=== PATIENT | male | born 1965 | race Caucasian/White ===

== ENCOUNTER 2017-05-30 12:50 | Inpatient (IN) | payer SELFPAY ==
[2017-05-30] VITALS (10 sets, daily range): BP systolic 118–171; BP diastolic 72–99; Ht 175.3 cm; Wt 68.6 kg
[~2017-05-30] VITALS: Ht 175.3 cm; Wt 68.6 kg
[2017-05-30 14:31] LABS: BASOPHILS 0.4 % (0-2); EOSINOPHILS 1.4 % (0-7); HEMATOCRIT 47.2 % (42.0-54.0); HEMOGLOBIN 16.6 g/dL (13.5-17.5); IMMATURE GRANULOCYTES 0.3 % (0-5); LYMPHOCYTES 21.9 % (15-50); MCH 32.6 pg (26.0-34.0); MCHC 35.2 g/dL (31.0-37.0); MCV 92.7 fL (80.0-100.0); MEAN PLATELET VOLUME 9.8 fL (7.4-10.4); MONOCYTES 14.6 % (2-11); NEUTROPHILS 61.4 % (40-80); PLATELET COUNT 228 10x3/uL (130-400); RBC 5.09 10x6/uL (4.20-6.10); RDW 12.7 % (11.5-14.5)
[2017-05-30 14:49] LABS: ALKALINE PHOSPHATASE 76 U/L (46-116); ALT (SGPT) 33 U/L (10-68); BILIRUBIN - TOTAL 0.65 mg/dL (0.2-1.3); CALC OSMOLALITY 268 mosm/kg (275-300); CALCIUM 9.1 mg/dL (8.5-10.1); CARBON DIOXIDE 28.3 mmol/L (21.0-32.0); CHLORIDE - SERUM 98 mmol/L (98-107); CREATININE - SERUM 0.8 mg/dL (0.6-1.3); GLUCOSE 108 mg/dL (74-106); POTASSIUM - SERUM 3.5 mmol/L (3.5-5.1); PROTEIN - SERUM 8.5 g/dL (6.4-8.2); SODIUM 135 mmol/L (136-145); UREA NITROGEN 6 mg/dL (7-18); eGFR NON AFRICAN AMERICAN > 90 mL/min (90-120)
[2017-05-30 17:08] LABS: ERYTHROCYTE SEDIMENTATION RATE 35 mm/hr (0-20)
--- NOTE | 2017-05-30 17:44 | NUR ---
TO ROOM 2203 FROM ER VIA WHEELCHAIR.ASSESSMENT PER ADMIT FLOW SHEET.NPO FOR SURGERY.ORIENTATION TO ROOM.CALL LIGHT IN REACH.
--- NOTE | 2017-05-30 17:53 | NUR ---
PATIENT DONE HEPI CLEANS BOTH TO LEFT ARM AND LEFT SIDE OF BODY. REFUSES PASSWORD FOR EMERGENCY CONTACT.
--- NOTE | 2017-05-30 18:35 | NUR ---
TO OR VIA BED.
--- NOTE | 2017-05-30 20:00 | NUR ---
RECIEVED PT BACK TO FLOOR FROM RECOVERY. PT IS ALERT AND ORIENTED AND ABLE TO VERBALIZE NEEDS. IV IS PATENT AND VANC RUNNING FROM RECOVERY. DRESSING TO LEFT HAND C/D/I. VSS. PT STATES PAIN IS 8/10. NO NEEDS ARE VERBALIZED AT THIS TIME. WILL CONTINUE TO MONITOR. SIDE RAILS ARE UP X 2. BED IS IN LOWEST POSITION. CALL LIGHT IS WITHIN REACH.
--- NOTE | 2017-05-30 21:08 | NUR ---
SHIFT ASSESSMENT COMPLETED. FLUIDS HUNG PER ORDER. VSS. NO NEEDS ARE VOICED. WILL MONITOR. SIDE RAILS X 2. BED LOW. CALL LIGHT IN REACH.
[2017-05-31 00:45] VITALS: BP 123/79
[2017-05-31 04:00] VITALS: BP 122/75
[2017-05-31 08:18] VITALS: BP 110/74
--- NOTE | 2017-05-31 08:34 | OP ---
PATIENT NAME: JOSEF MONTES MEDICAL RECORD: [id number] :[birth year] LOCATION:[id number] ADMISSION DATE:05/30/17 SURGEON: ANTONI AVENDANO DO DATE OF OPERATION: 05/30/2017 PROCEDURE PERFORMED: Left ring finger incision and debridement. PREOPERATIVE DIAGNOSIS: Left ring finger infection. POSTOPERATIVE DIAGNOSIS: Left ring finger infection. INDICATIONS: Mr. Montes is a right-hand dominant 51-year-old male who has a rash over his body. He has had it for years he said since he had been in [place] and they do not know what it is. He had a lesion at the ulnar side of the MCP joint of the left ring finger for weeks, then Monday, his left ring finger started to become swollen and painful and decided to come to the Emergency Room tonight. Once he was seen in the Emergency Room, he had a fluctuance underneath the skin and purulence was seen as well and they decided to do an I&D of that finger. He was consented for the procedure. SURGEON: Antoni Avendano DO DESCRIPTION OF PROCEDURE: The patient was taken to the operative suite, placed in supine position. Timeout was performed and everyone was in agreement with the correct side, site and the patient and antibiotics were withheld at that time for cultures. Once this was done, he was prepped and draped. The excess skin that was noted to be on top of the purulence was peeled away. A new skin was underneath it, thought it had a good bleeding surface. This was done on the ulnar almost circumferentially on the left ring finger, beginning ulnarly, only sparing a small portion of the skin on the palmar portion of the hand, most of the skin was peeled off as well as the lesion was opened up. The skin was removed. Once this was done and all the purulence was scraped away, the cultures were taken and the patient was given antibiotics, a gram of vancomycin. Then, a mid axial incision was made on the ulnar side of the ring finger and it was opened up and more purulence was excreted from the finger as well as some serosanguineous fluid. The extensor tendon sheath as well as the flexor tendon sheath were entered ensuring there was no infection in either of those and the wound was irrigated copiously with almost a liter of normal saline. Once this was done, the wound was left open. Adaptic, 4 x 4s, and Kerlix were placed over the wound and a tube gauze was placed over the finger. He is awakened and taken to PACU in stable condition. Blood loss was minimal. TRANSINT:[id number] Voice Confirmation ID: [id number] DOCUMENT ID: [id number] ANTONI AVENDANO DO at 0834 CC: [id number] DICTATION DATE: 05/30/171934 ASSISTANT PROFESSOR OF ECONOMICS: 05/30/172216 ADM IN [facility] [address] [place] [address]
--- NOTE | 2017-05-31 14:14 | NUR ---
Patient Name: JOSEF MONTES Admission Status: ER Accout number: [id number] Admission Date: 05-30-2017 : 1965 Admission Diagnosis: Attending: ANTONI AVENDANO Current LOS: 1 Anticipated DC Date: Planned Disposition: Home Primary Insurance: UNINSURED DISCOUNT PLAN Discharge Planning Comments: CM met with patient to assess discharge planning needs. Patient states that he is homeless and does not have any family or friends where he could discharge home too. He plans to discharge to [facility]. He does not have any means of transportation or money. He is not on any sort of disability. CM will continue to assist with discharge planning needs. PCP: glenny fry Filter Operator: Angelique Lester Patient Name: JOSEF MONTES Admission Status: ER Accout number: [id number] Admission Date: 05-30-2017 : 1965 Admission Diagnosis: Attending: ANTONI AVENDANO Current LOS: 1 Anticipated DC Date: Planned Disposition: Home Primary Insurance: UNINSURED DISCOUNT PLAN Discharge Planning Comments: CM met with patient to assess discharge planning needs. Patient states that he is homeless and does not have any family or friends where he could discharge home too. He plans to discharge to [facility]. He does not have any means of transportation or money. He is not on any sort of disability. CM will continue to assist with discharge planning needs. PCP: glenny fry Filter Operator: Angelique Lester * Is the patient Alert and Oriented? Yes 0 * PCP none 0 * Pharmacy [facility] 0 * Preadmission Environment Homeless 0 * Facility Name [facility] 0 * ADLs Independent 0 * Community resources currently utilized None 0 * Please name any agencies selected above. [facility] 0 * Additional services required to return to the preadmission environment? Yes 0 * Can the patient safely return to the preadmission environment? Yes 0 * Has this patient been hospitalized within the prior 30 days at any hospital? No 0 Grand Total: 0
[2017-05-31 14:24] VITALS: BP 115/75
[2017-05-31 17:13] VITALS: BP 115/80
[2017-05-31 19:00] VITALS: BP 131/81
--- NOTE | 2017-05-31 19:15 | NUR ---
RECEIEVED SHIFT REPORT. PT IS LYING IN BED. ALERT AND ORIENTED AND ABLE TO VERBALIZE NEEDS. IV IS PATENT AND FLUIDS ARE RUNNING PER ORDER. PT IS AMBULATORY BUT WAS INSTRUCTED TO CALL FOR ANY ASSISTANCE NEEDED. DRESSING TO LEFT RING FINGER C/D/I. PT STATES PAIN IS 7/10. NO NEEDS ARE VERBALIZED AT THIS TIME. WILL CONTINUE TO MONITOR. SIDE RAILS ARE UP X 2. BED IS IN LOWEST POSITION. CALL LIGHT IS WITHIN REACH.
--- NOTE | 2017-05-31 19:23 | NUR ---
REMAINS WITHOUT NEEDS,WITHOUT CHANGE FROM INITIAL SHIFT ASSESSMENT.CONT PLAN OF CARE
--- NOTE | 2017-05-31 20:32 | NUR ---
SHIFT ASSESSMENT COMPLETED. PT IV TO RIGHT HAND CAME OUT. NEW IV SITED TO RIGHT FOREARM X 1 ATTEMPT. 20G. GOOD BLOOD RETURN. FLUSHES W/O DIFFICULTY. FLUIDS HOOKED BACK UP PER ORDER. ANTIBIOTIC HUNG PER ORDER. PT C/O PAIN 05/28. ADMINISTERED PRESCRIBED PRN NORCO PER ORDER. DENIES FURTHER NEEDS. WILL MONITOR. SIDE RAILS X 2. BED LOW. CALL LIGHT IN REACH.
[2017-06-01 04:00] VITALS: BP 137/84
[2017-06-01 08:29] VITALS: BP 124/87
[2017-06-01 11:43] VITALS: BP 104/61
[2017-06-01 15:54] VITALS: BP 137/88
[2017-06-01 20:00] VITALS: BP 132/79
[2017-06-02 00:17] VITALS: BP 141/79
[2017-06-02 04:00] VITALS: BP 139/85
--- NOTE | 2017-06-02 07:38 | NUR ---
AWAKE AND ALERT. ORIENTED X3. C/O PAIN TO LEFT HAND LEVEL 6. GIVEN ONE HYDROCODONE PO FOR SAME. WILL MONITOR. LUNGS ARE CLEAR BILATERALLY, NO COUGH NOTED. SKIN IS INTACT WITHOUT REDNESS EXCEPTWOUND TO LEFT HAND WHCIH HAS A DRY INTACT DRESSING IN PLACE. IV TO RIGHT FOREARM IS PATENT WITHOUT REDNESS AT INSERTION SITE. DENIES NEEDS.
[2017-06-02 08:33] VITALS: BP 126/84
--- NOTE | 2017-06-02 10:13 | NUR ---
ATE ALL OF BREAKFAST. REPORTED GOOD PAIN MANAGEMENT WITH USE OF HYDROCODONE. DENIES NEEDS.
[2017-06-02 12:48] VITALS: BP 123/77
--- NOTE | 2017-06-02 13:26 | NUR ---
ATE ALL OF LUNCH. DENIES NEEDS. NO C/O PAIN AT THIS TIME.
[2017-06-02 17:18] VITALS: BP 127/78
[2017-06-02 20:00] VITALS: BP 125/49; BP 137/77
[2017-06-03] VITALS: BP 123/77
[2017-06-03 04:00] VITALS: BP 125/79
[2017-06-03 05:13] LABS: CALC OSMOLALITY 278 mosm/kg (275-300); CALCIUM 8.3 mg/dL (8.5-10.1); CARBON DIOXIDE 26.8 mmol/L (21.0-32.0); CHLORIDE - SERUM 108 mmol/L (98-107); CREATININE - SERUM 0.8 mg/dL (0.6-1.3); GLUCOSE 96 mg/dL (74-106); POTASSIUM - SERUM 3.8 mmol/L (3.5-5.1); SODIUM 141 mmol/L (136-145); UREA NITROGEN 8 mg/dL (7-18); eGFR NON AFRICAN AMERICAN > 90 mL/min (90-120)
--- NOTE | 2017-06-03 06:55 | NUR ---
REPORT RECIEVED, ASSUMED CARE OF PT. CONTACT ISOLATION PRECAUTIONS IN PLACE. PT RESTING IN BED, NO COMPLAINTS AT THIS TIME. R ARM IV INFUSING FLUIDS ORDERED, DRSG CLEAN, DRY AND INTACT. L HAND DRSG IN PLACE FOR 4TH FINGER, CLEAN, DRY AND INTACT. BED IN LOWEST POSITION, SIDE RAILS UP X 2, CALL LIGHT WITHIN REACH.
[2017-06-03 09:18] LABS: HEMATOCRIT 38.9 % (42.0-54.0); HEMOGLOBIN 13.4 g/dL (13.5-17.5); MCH 32.3 pg (26.0-34.0); MCHC 34.4 g/dL (31.0-37.0); MCV 93.7 fL (80.0-100.0); MEAN PLATELET VOLUME 10.7 fL (7.4-10.4); PLATELET COUNT 273 10x3/uL (130-400); RBC 4.15 10x6/uL (4.20-6.10); RDW 12.3 % (11.5-14.5); WBC 5.2 10x3/uL (4.8-10.8)
[2017-06-03 09:38] LABS: EOSINOPHILS 5 % (0-7); LYMPHOCYTES 47 % (15-50); MONOCYTES 2 % (2-11); NEUTROPHILS 40 % (40-80); PLATELET ESTIMATE NORMAL
[2017-06-03 09:45] VITALS: BP 128/83
[2017-06-03 10:20] LABS: ERYTHROCYTE SEDIMENTATION RATE 27 mm/hr (0-20)
[2017-06-03 13:04] VITALS: BP 126/80
[2017-06-03 16:32] VITALS: BP 134/79
--- NOTE | 2017-06-03 19:10 | NUR ---
INTRODUCED SELF TO PATIENT. HE IS ALERT AND ORIENTED X'S 4. NO SIGNS OF DISTRESS NOTED. PATIENT REQUESTED A CUP OF ICE BUT DENIES ANY OTHER NEEDS AT THIS TIME. BROUGHT HIM A CUP OF ICE HE WAS AMBULATING FROM THE BATHROOM BACK TO BED. GAIT STEADY. BED IN LOWEST POSITION, CALL LIGHT IN REACH. BED RAILS UP X'S 2.
[2017-06-03 20:00] VITALS: BP 134/80
--- NOTE | 2017-06-04 03:00 | NUR ---
RESTING QUIETLY WITH EYES CLOSED.
[2017-06-04 04:00] VITALS: BP 133/76
[2017-06-04 09:42] VITALS: BP 124/79
[2017-06-04 11:55] VITALS: BP 122/75
[2017-06-04 15:53] VITALS: BP 136/74
--- NOTE | 2017-06-04 19:16 | NUR ---
PT IS LYING ON LEFT SIDE EYES CLOSED WITH EVEN RISE AND FALL OF CHEST, PT HAS DRESSING ON LEFT HAND , PT DID REQUEST LEMON SQUAXIN SODA DURING ASSESSMENT. BED IS IN LOW POSITION, CALL LIGHT WITHIN REACH. NO SIGNS OF DISTRESS, NO OTHER NEEDS AT THIS TIME
[2017-06-04 20:00] VITALS: BP 120/73
[2017-06-05] VITALS: BP 134/79
--- NOTE | 2017-06-05 01:41 | NUR ---
RN NOTE: RE-SITED IV TO RIGHT FA USING 20 GUAGE CATHETER IN ONE STICK. RE-STARTED IV FLUIDS. WILL CONTINUE TO MONITOR FOR NEEDS.
--- NOTE | 2017-06-05 01:51 | NUR ---
PT IV INFILTRATED, RN JORDAN RESITED IV TO RT FOREARM
[2017-06-05 04:00] VITALS: BP 135/92
[2017-06-05 06:26] VITALS: BP 137/79
--- NOTE | 2017-06-05 07:00 | NUR ---
REPORT RECIEVED ASSUMED CARE. PATIENT IN BED WITH IV INTACT. NO COMPLAINTS AT THIS TIME. CALL LIGHT WITHIN REACH.
[2017-06-05] MEDS ORDERED: KEFLEX500 MG PO (08:44)
[2017-06-05] MEDS ORDERED: FLAGYL500 MG PO (08:44)
--- NOTE | 2017-06-05 09:33 | NUR ---
REQUESTED AND GIVNE ONE HYDROCODONE PO FOR C/O LEFT HAND PAIN LEVEL 7. WILL MONITOR.
[2017-06-05 09:40] VITALS: BP 127/78
--- NOTE | 2017-06-05 10:46 | NUR ---
Patient will be discharging today. Prescriptions called into [facility] for patient to pickling operator on his way to [facility]. Hospital will cover the taxi and the medications at discharge.
[2017-06-05 11:45] VITALS: BP 114/68
--- NOTE | 2017-06-05 13:00 | NUR ---
DISCHARGE INSTRUCTIONS GIVEN TO PATIENT WITH PRESCRIPTIONS AT THIS TIME. IV REMOVED WITH CATH TIP INTACT. NO QUESTIONS AT THIS TIME. VERBALIZED UNDERSTANDING.
--- NOTE | 2017-06-05 13:03 | NUR ---
[facility] CALLED FOR PATIENT.
--- NOTE | 2017-06-05 13:13 | NUR ---
PATIENT ESCORTED OUT OF HOSPITAL VIA WC WITH PERSONAL BELONGINGS TO TAXI, BY KATHRYN.
[2017-06-05 18:08] LABS: AEROBE ID Final report (())
== END 2017-06-05 13:19 | disposition home or self-care (01) | DRG 581 ==
LOC: D.ER 12:50 → D.MS 15:09
PROVIDERS: Emergency Medicine; Student in an Organized Health Care Education/Training Program; ADMIT Orthopaedic Surgery
PROC: 0J9K0ZZ Drainage of Left Hand Subcutaneous Tissue and Fascia, Open Approach (ICD-10-PCS; principal; 2017-05-30 14:00)
DX: L08.9 Local infection of the skin and subcutaneous tissue, unspecified (principal); Z59.0 Homelessness; R21 Rash and other nonspecific skin eruption; F17.200 Nicotine dependence, unspecified, uncomplicated; F15.90 Other stimulant use, unspecified, uncomplicated; F12.90 Cannabis use, unspecified, uncomplicated

== ENCOUNTER 2017-07-06 16:32 | Emergency (ER) | payer BC ==
[2017-05-30 17:37] VITALS: BMI 22.3
[~2017-07-06 16:32] MED LIST: FLAGYL500 MG PO; KEFLEX500 MG PO
[2017-07-06 17:50] LABS: BASOPHILS 0.3 % (0-2); EOSINOPHILS 1.4 % (0-7); HEMATOCRIT 42.7 % (42.0-54.0); IMMATURE GRANULOCYTES 0.3 % (0-5); LYMPHOCYTES 25.2 % (15-50); MCH 32.3 pg (26.0-34.0); MCHC 35.1 g/dL (31.0-37.0); MCV 91.8 fL (80.0-100.0); MEAN PLATELET VOLUME 10.2 fL (7.4-10.4); NEUTROPHILS 64.8 % (40-80); PLATELET COUNT 245 10x3/uL (130-400); RBC 4.65 10x6/uL (4.20-6.10); RDW 12.6 % (11.5-14.5); WBC 10.3 10x3/uL (4.8-10.8)
[2017-07-06 18:09] LABS: ALKALINE PHOSPHATASE 80 U/L (46-116); ALT (SGPT) 30 U/L (10-68); CALC OSMOLALITY 270 mosm/kg (275-300); CALCIUM 9.1 mg/dL (8.5-10.1); CARBON DIOXIDE 26.5 mmol/L (21.0-32.0); CHLORIDE - SERUM 101 mmol/L (98-107); CREATININE - SERUM 0.7 mg/dL (0.6-1.3); GLUCOSE 95 mg/dL (74-106); POTASSIUM - SERUM 3.8 mmol/L (3.5-5.1); PROTEIN - SERUM 8.2 g/dL (6.4-8.2); SODIUM 137 mmol/L (136-145); UREA NITROGEN 5 mg/dL (7-18); eGFR NON AFRICAN AMERICAN > 90 mL/min (90-120)
== END 2017-07-06 19:35 | disposition home or self-care (01) ==
LOC: D.ER 16:32
PROVIDERS: Physician Assistant Medical
DX: L02.511 Cutaneous abscess of right hand (principal); F17.200 Nicotine dependence, unspecified, uncomplicated

== ENCOUNTER 2017-08-15 08:35 | Emergency (ER) | payer MEDICAID ==
[2017-05-30 17:37] VITALS: BMI 22.3
== END 2017-08-15 09:44 | disposition home or self-care (01) ==
LOC: D.ER 08:35
DX: K12.2 Cellulitis and abscess of mouth (principal); F17.200 Nicotine dependence, unspecified, uncomplicated